=== PATIENT | male | born 1980 | race Caucasian/White ===

== ENCOUNTER 2017-12-20 17:41 | Emergency (ER) | payer SELFPAY ==
[2017-12-20 18:16] VITALS: BP 137/80
--- NOTE | 2017-12-20 18:33 | UC ---
General HPI - HPI Summary HPI Summary: pt is c/o feeling hot in his face and neck. he is also c/o fatigue, a vague headache and sense of not well. states he is working 18 hour days in a dirty environment and gets little sleep. he also notes he dropped a board on his L foot 3 days ago causing a bruise but notes the swelling and bruise are better. he did see his pcp recently with extensive blood work that was good except for mild elevation in lipids. denies weigth gain/loss. when asked about hx of anxiety/depression, pt admits to hx of anxiety and had been on Lexapro in the past. he is not suicidal. - History of Current Complaint Chief Complaint: UCGeneralIllness Stated Complaint: FEVER Time Seen by Provider: 12/20/17 18:26 Hx Obtained From: Patient Onset/Duration: Gradual Onset Pain Intensity: 0 Aggravating: nothing Alleviating: nothing Associated Signs & Symptoms: Positive: Headache, Weakness - Allergy/Home Medications Allergies/Adverse Reactions: Allergies Allergy/AdvReac Type Severity Reaction Status Date / Time Penicillins Allergy Unknown Verified 12/20/17 18:17 Reaction Details gluten Allergy GI Upset Uncoded 12/20/17 18:20 lactose intolerance Allergy GI Upset Uncoded 12/20/17 18:20 Home Medications: Home Medications Ibuprofen 600 mg PO SEE INSTRUCTIONS PRN 12/20/17 [History Confirmed 12/20/17] Multivitamin [Multivitamins] 1 each PO DAILY 12/20/17 [History Confirmed ] PMH/Surg Hx/FS Hx/Imm Hx - Additional Past Medical History Additional PMH: anxiety - Surgical History Surgical History: Yes Surgery Procedure, Year, and Place: 1999 - Family History Known Family History: Positive: Cardiac Disease - not younger than 50yo - Social History Occupation: Employed Full-time Lives: Alone Alcohol Use: None Substance Use Type: None Smoking Status (MU): Former Smoker - Immunization History Vaccination Up to Date: Yes Review of Systems Constitutional: Fatigue Skin: Negative Eyes: Negative ENT: Negative Respiratory: Negative Cardiovascular: Negative Gastrointestinal: Negative Genitourinary: Negative Motor: Weakness Neurovascular: Negative Musculoskeletal: Negative Neurological: Negative Psychological: Negative Is Patient Immunocompromised?: No All Other Systems Reviewed And Are Negative: Yes Physical Exam Triage Information Reviewed: Yes Appearance: Well-Appearing Vital Signs: Initial Vital Signs Temp 97.5 F 05/20/18 17:51 Pulse 76 12/20/17 17:51 Resp 20 12/20/17 17:51 BP 137/80 12/20/17 17:51 Pulse Ox 100 12/20/17 17:51 Vital Signs Reviewed: Yes Eyes: Positive: Conjunctiva Clear ENT: Positive: Pharynx normal, TMs normal. Negative: Nasal congestion, Nasal drainage Neck: Positive: Supple, Nontender, No Lymphadenopathy Respiratory: Positive: Lungs clear, Normal breath sounds Cardiovascular: Positive: RRR, No Murmur Abdomen Description: Positive: Nontender, No Organomegaly, Soft Bowel Sounds: Positive: Present Musculoskeletal: Positive: ROM Intact, No Edema, Other: - Dorsal L foot slight green-blue bruising. non tender and s/v/m is intact. Neurological: Positive: Alert Psychological: Positive: Age Appropriate Behavior Skin Exam: Normal Course/Dx - Course Course Of Treatment: pt has normal exam except for contusion to his foot. he refused an xray of the foot. nothing to suggest myxedema. anxiety is possible, pt not suicidal. also, his work schedule and lack of sleep is a reasonable explanation for his fatigue. pt strongly advised to f/u Dr Galindo for ongoing evaluation and to discuss if possible needs Lexapro again. - Differential Dx - Multi-Symptom Provider Diagnoses: Fatigue Discharge - Sign-Out/Discharge Documenting (check all that apply): Discharge/Admit/Transfer - Discharge Plan Condition: Stable Disposition: HOME Patient Education Materials: Fatigue (ED) Referrals: Alexander Galindo MD [Primary Care Provider] - As Soon As Possible - Billing Disposition and Condition Condition: STABLE Disposition: HOME
== END 2017-12-20 19:18 | disposition home or self-care (01) ==
LOC: UCCORT 17:41
DX: R53.83 Other fatigue (principal); Z91.011 Allergy to milk products; Z88.0 Allergy status to penicillin; Z91.018 Allergy to other foods
CPT/HCPCS: 99211; G0463

== ENCOUNTER 2018-03-31 11:09 | Emergency (ER) | payer SELFPAY ==
[2018-03-31 11:56] VITALS: BP 131/73
[2018-03-31] MEDS ORDERED: Tetan/Diph/Pertus SYR(Tdap)* 0.5 ML SYR(BOOSTRIX) use SYR IM ONE (12:15)
--- NOTE | 2018-03-31 12:20 | UC ---
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 Patient had his hands in concrete for approximately 10-12 minutes, noticed burning sensation afterwards, and reported here for evaluation. Denies any weakness or numbness. Burning sensation located in the palms and forearms bilaterally, no radiation. No prior episodes. No worsening or relieving factors. - History of Current Complaint Chief Complaint: UCSkin Stated Complaint: SKIN COMPLAINT ARMS Time Seen by Provider: 03/31/18 11:37 Pain Intensity: 4 - Allergy/Home Medications Allergies/Adverse Reactions: Allergies Allergy/AdvReac Type Severity Reaction Status Date / Time Penicillins Allergy Unknown Verified 03/31/18 11:56 Reaction Details gluten Allergy GI Upset Uncoded 03/31/18 11:56 lactose intolerance Allergy GI Upset Uncoded 03/31/18 11:56 PMH/Surg Hx/FS Hx/Imm Hx - Additional Past Medical History Additional PMH: No history of hypertension or diabetes Previously Healthy: Yes - Surgical History Surgical History: Yes Surgery Procedure, Year, and Place: 1999 - Family History Known Family History: Positive: Cardiac Disease - not younger than 50yo - Social History Alcohol Use: Rare Substance Use Type: None Smoking Status (MU): Former Smoker - Immunization History Most Recent Tetanus Shot: Unknown Vaccination Up to Date: Yes Review of Systems Skin: Other - burn to the Palms and forearms bilaterally All Other Systems Reviewed And Are Negative: Yes Physical Exam - Summary Physical Exam Summary: Gen: alert, in no acute distress HEENT: EOMI, normocephalic, atruamatic Neck: supple, no masses CV: Normal s1 s2, no murmurs Resp: normal breath sounds b/l GI: no tenderness, no masses Musculoskeletal: normal ROM all 4 extremities Skin: Mild erythema of the palmar area and distal forearms bilaterally, mild tenderness to palpation, no open lesions or blistering. Likely first degree dill on these areas, approximately 3% total body surface area. No evidence of any second or third-degree dill. Lymph: no lymphadenopathy Psych: appropriate affect, oriented Triage Information Reviewed: Yes Vital Signs: Initial Vital Signs Temp 37.2 C 03/31/18 11:40 Pulse 86 08/29/18 11:40 Resp 20 03/31/18 11:40 BP 131/73 03/31/18 11:40 Burn Calculation - [place] Formula for Fluid Resuscitation Weight: 83.915 kg 24 -Hour Fluid Replacement: 0.0 Course/Dx Burn - Course Course Of Treatment: I spoke with poison control who recommended immediate decontamination and supportive care. Patient feels well after decontamination, I started the patient to continue to wash and scrub any additional areas of exposure at home and to apply bacitracin ointment and affected areas. Patient in no acute distress with improving symptoms. He agrees to and understands discharge instructions. I also instructed the patient to follow up with a primary care doctor in 1 week and to report to the emergency department for any worsening or concerning symptoms. - Diagnoses Clinic Provider Diagnoses: Chemical burn Discharge - Sign-Out/Discharge Documenting (check all that apply): Patient Departure - home All imaging exams completed and their final reports reviewed: No Studies - Discharge Plan Condition: Stable Disposition: HOME Prescriptions: Bacitracin OINT* 0 gm TOPICAL BID #1 jar Patient Education Materials: Chemical Skin Burn (ED) Referrals: Alexander Galindo MD [Primary Care Provider] - Additional Instructions: PLEASE MAKE AN APPOINTMENT TO BE SEEN BY A PRIMARY CARE DOCTOR WITHIN 1-2 WEEKS PLEASE REPORT TO THE ER FOR ANY WORSENING OR CONCERNING SYMPTOMS PLEASE CLEANSE YOUR SKIN THOROUGHLY WHEN YOU GET HOME AND APPLY BACITRACIN OINTMENT TO AFFECTED AREAS TWICE DAILY PLEASE USE PROTECTIVE EQUIPMENT AND A MASK WHEN WORKING WITH [employer] OR [employer] - Billing Disposition and Condition Condition: STABLE Disposition: Home
== END 2018-03-31 12:40 | disposition home or self-care (01) ==
LOC: UCCORT 11:09
DX: T23.552A Corrosion of first degree of left palm, initial encounter (principal); T23.551A Corrosion of first degree of right palm, initial encounter; T22.512A Corrosion of first degree of left forearm, initial encounter; T22.511A Corrosion of first degree of right forearm, initial encounter; T65.891A Toxic effect of other specified substances, accidental (unintentional), initial encounter; Z88.0 Allergy status to penicillin; Z91.018 Allergy to other foods; Z91.011 Allergy to milk products; Y93.89 Activity, other specified; Z87.891 Personal history of nicotine dependence; Y99.0 Civilian activity done for income or pay; Y92.9 Unspecified place or not applicable
CPT/HCPCS: 90471; 90715; 99212; G0463